=== PATIENT | female | born 1955 | race Caucasian/White ===

== ENCOUNTER 2019-05-20 07:38 | Inpatient (IN) ==
[2019-05-07 08:06] LABS: URINE SOURCE CLEAN CATCH
[2019-05-07 08:46] LABS: BASO# 0.05 X1000 (0.0-0.2); BASO% 0.9 % (0.0-0.8); EOS# 0.34 X1000 (0.0-0.7); EOS% 6.2 % (0.0-10.0); HEMATOCRIT 43.3 % (37.0-47.0); HEMOGLOBIN 14.6 g/dL (12.0-16.0); MCH 31.2 PG (27-31); MCHC 33.7 g/dL (33-37); MCV 92.5 FL (81-99); MONO# 0.51 X1000 (0.11-0.59); MONO% 9.3 % (1.7-9.3); MPV 12.1 FL (7.4-10.4); NEUT# 2.28 X1000 (1.4-6.5); NEUT% 41.6 % (42.2-75.2); PLT 280 X1000 (130-400); RBC 4.68 XMIL (4.2-5.4); RDW 13.2 % (11.5-14.5); WBC 5.48 X1000 (4.8-10.8)
[2019-05-07 08:47] LABS: BILIRUBIN URINE NEGATIVE (NEGATIVE); BLOOD URINE NEGATIVE (NEGATIVE); COLOR YELLOW; GLUCOSE URINE NEGATIVE (NEGATIVE); KETONE URINE NEGATIVE (NEGATIVE); LEUKOCYTES URINE MODERATE (NEGATIVE); NITRITE URINE NEGATIVE (NEGATIVE); PH URINE 6.5; PROTEIN URINE NEGATIVE (NEGATIVE); SP GRAVITY URINE 1.015; TURBIDITY URINE CLEAR (CLEAR); UROBILINOGEN URINE NORMAL (NORMAL)
[2019-05-07 08:48] LABS: UR EPITHELIAL CELLS <10 /HPF (<10); URINE BACTERIA NEGATIVE /HPF; URINE RBC <10 /HPF (<10)
[2019-05-07 08:59] LABS: INR 0.89; PROTIME 12.7 Seconds (11.0-16.0); PTT 28.6 Seconds (22.3-41.8)
[2019-05-07 09:13] LABS: AGAP 12; BUN 18 mg/dL (8-22); CALCIUM 9.6 mg/dL (8.8-10.2); CHLORIDE 101 mmol/L (98-107); COSMO 280; CREATININE 0.8 mg/dL (0.5-0.9); ESTIMATED GFR > 60; GLUCOSE 105 mg/dL (70-104); POTASSIUM 3.8 mmol/L (3.5-5.1); SODIUM 139 mmol/L (136-145); TCO2 26 mmol/L (25-35)
--- NOTE | 2019-05-07 11:22 | EKG Report ---
Test Performed on : 05/07/2019 07:32:00 AM Test Reason : PAT Blood Pressure : / mmHG Vent. Rate : 081 BPM Atrial Rate : 081 BPM P-R Int : 184 ms QRS Dur : 086 ms QT Int : 344 ms P-R-T Axes : 050 026 013 degrees QTc Int : 399 ms Normal sinus rhythm. Nonspecific T wave abnormality Inferior leads Borderline ECG When compared with ECG of 20-MAY-2014 09:10, No significant change was found Confirmed by Antonio Drummond MD ([id number]) on 05/07/2019 6:41:12 PM
[2019-05-20] MEDS ORDERED: PEPCID ONE (08:01)
[2019-05-20] MEDS ORDERED: COLACE ONE (08:01)
[2019-05-20] MEDS ORDERED: REGLAN ONE (08:01)
[2019-05-20] MEDS ORDERED: LYRICA ONE (08:02)
[2019-05-20] MEDS ORDERED: CELEBREX ONE (08:02)
[2019-05-20] MEDS ORDERED: LR 1,000 ML ONE (08:02)
[2019-05-20] MEDS ORDERED: KEFZOL 1 GM/D5W 1 GM/50 ML IVPB ONE (08:02)
[2019-05-20] MEDS ORDERED: DURAMORPH ONE (09:35)
[2019-05-20] MEDS ORDERED: TORADOL ONE (09:35)
[2019-05-20] MEDS ORDERED: SODIUM CHLORIDE 0.9% ONE (09:35)
[2019-05-20] MEDS ORDERED: VANCOMYCIN ONE (09:35)
[2019-05-20] MEDS ORDERED: MARCAINE 0.25% PF/EPI 1:200,000 ONE (09:35)
[2019-05-20] MEDS ORDERED: NEOSPORIN G.U. IRRIGANT ONE (09:36)
[2019-05-20] MEDS ORDERED: EXPAREL 1.3% ONE (09:36)
[2019-05-20] MEDS ORDERED: XYLOCAINE-MPF 2% ONE ×2 (09:48→09:49)
[2019-05-20] MEDS ORDERED: DIPRIVAN 1% ONE (09:49)
[2019-05-20] MEDS ORDERED: FENTANYL ONE (09:52)
[2019-05-20] MEDS: CYKLOKAPRON 1,000 MG/NS 2,000 MG/200 ML IVPB ONE ×2 (10:20→11:20)
[2019-05-20] MEDS ORDERED: ZOFRAN ONE (11:20)
[2019-05-20] MEDS ORDERED: OFIRMEV 1000 MG/ISOTONIC SOLN 1,000 MG/100 ML BOTTLE ONE (11:20)
[2019-05-20] MEDS ORDERED: DECADRON ONE ×2 (11:20→11:21)
[2019-05-20 12:09] LABS: BILIRUBIN URINE NEGATIVE (NEGATIVE); BLOOD URINE NEGATIVE (NEGATIVE); COLOR STRAW; GLUCOSE URINE NEGATIVE (NEGATIVE); KETONE URINE NEGATIVE (NEGATIVE); LEUKOCYTES URINE NEGATIVE (NEGATIVE); NITRITE URINE NEGATIVE (NEGATIVE); PROTEIN URINE NEGATIVE (NEGATIVE); SP GRAVITY URINE 1.007; TURBIDITY URINE CLEAR (CLEAR); URINE SOURCE CATH; UROBILINOGEN URINE NORMAL (NORMAL)
[2019-05-20 12:10] LABS: UR EPITHELIAL CELLS <10 /HPF (<10); URINE BACTERIA NEGATIVE /HPF; URINE RBC <10 /HPF (<10); URINE WBC <10 /HPF (<10)
[2019-05-20] MEDS ORDERED: NS 1,000 ML ONE (12:43)
--- NOTE | 2019-05-20 12:44 | Diag Imaging Result Doc PS360 ---
EXAM: KNEE 1-2 VIEWS-RIGHT INDICATION: tka on rt knee TECHNIQUE: 2 views COMPARISON: None. FINDINGS: There has been a recent right knee arthroplasty. The arthroplasty hardware is in the expected position. There is no evidence of periprosthetic fracture. Anterior skin sharri and a drainage catheter are in place. IMPRESSION: Satisfactory postoperative knee. Electronically signed by Ivan Hoskins 05/20/2019 12:42 PM
[2019-05-20] MEDS ORDERED: ZOFRAN ODT PO PRN (13:15)
[2019-05-20] MEDS ORDERED: ZOFRAN IV PRN (13:15)
[2019-05-20] MEDS ORDERED: OXY IR PO PRN (13:15)
[2019-05-20] MEDS ORDERED: DILAUDID IV PRN ×2 (13:15)
--- NOTE | 2019-05-20 14:18 | OPERATIVE NOTE ---
PROCEDURE DATE: 05/20/2019 PREOPERATIVE DIAGNOSIS: Degenerative joint disease, right knee. POSTOP DIAGNOSIS: Degenerative joint disease, right knee. PROCEDURE PERFORMED: Right total knee replacement. SURGEON: Dona Acevedo MD. FIELD APPLICATIONS SPECIALIST: TERRANCE Martin. Mr. Tobin was necessary for proper retraction and manipulation of the knee. ANESTHESIA: Spinal. COMPLICATION: None. PROCEDURE IN DETAIL: A 64-year-old female presents for right total knee replacement. Risks, benefits, and no guarantees were discussed and she is willing to proceed. She was taken to the operating room and satisfactory anesthesia was obtained. The right leg was prepped and draped in usual sterile fashion. A time-out was taken to confirm operative site, procedure, and patient. The leg was then wrapped with an Esmarch and tourniquet inflated 350 mmHg. A midline incision was made over the front of the right knee followed by a quad tendon sparing arthrotomy. The patella was everted and resurfaced with freehand technique and subluxed laterally. The knee was flexed. An intramedullary hole made in the distal femur and the distal femoral cutting block secured in 5 degrees of valgus. After the distal femoral resection the femur was sized to a size 5 DePuy Attune femoral implant. The 4-in-1 block was secured and anterior, posterior, and chamfer cuts sequentially made. Any remaining osteophytes were debrided. The knee was flexed and a PCL retractor placed behind the tibia to protect the PCL and neurovascular bundle. Tibial cutting block was secured with extramedullary alignment and the tibial resection made. Flexion-extension gaps were equal at 10 mm. Tibia was sized to a size 5 tibial tray. The patella sized to a 32 medialized dome patella. Trial reduction was performed with trial implants with good range of motion and stability. The drill holes were placed for the patella and the femoral component and the trial components removed. The bony surfaces were thoroughly irrigated with pulsatile lavage. Cement with a gram of vancomycin was utilized to cement a size 5 DePuy Attune rotating platform tibial base plate, a size 5 right cruciate-retaining femoral component and a 32 medialized dome patella. Excess cement was removed with a [place] elevator. While the cement cured, the joint capsule was injected with Exparel and a Hemovac drain placed. After curing the cement, a 10 mm size 5 thick rotating platform polyethylene bearing was inserted in the tibial tray and the knee reduced. Final range of motion was 0 to 130 degrees with midline patellar tracking. The arthrotomy was copiously irrigated and then closed over the drain with #1 Vicryl in the arthrotomy, 2-0 Vicryl in the subcutaneous and skin sharri on the skin edges. Sterile dressings completed the closure and the patient was recovered from anesthesia and transferred to the recovery room in stable condition. No intraoperative complications were noted. Instrument count, sponge count was correct at the time of closure. cc: Ivan Acevedo MD
[2019-05-20] MEDS: ULTRAM PO SCH ×2 (18:24→20:59)
[2019-05-20] MEDS: KEFZOL 1 GM/D5W 1 GM/50 ML IVPB IV SCH (18:24)
[2019-05-20] MEDS: OXY IR PO PRN (18:25)
[2019-05-20] MEDS: NS 1,000 ML IV SCH (18:29)
--- NOTE | 2019-05-20 18:52 | ORTHOPAEDICS PROGRESS NOTE ---
DATE: 05/20/2019 SUBJECTIVE: Ms. Malloy is seen status post total knee replacement. OBJECTIVE: She is afebrile with stable vital signs. Her bandage is clean and dry. She appears to be motor and sensory intact. ASSESSMENT/PLAN: We will plan on mobilizing her with a walker. We will consider discharge home when she is mobilizing well. cc: Ivan Acevedo MD
[2019-05-20] MEDS: PERIDEX MT SCH (20:57)
[2019-05-20] MEDS: COLACE PO SCH (20:58)
[2019-05-20] MEDS: TYLENOL PO SCH (20:58)
[2019-05-20] MEDS: CELEBREX PO SCH (20:58)
[2019-05-20] MEDS ORDERED: NORVASC PO SCH (21:00)
[2019-05-21] MEDS: KEFZOL 1 GM/D5W 1 GM/50 ML IVPB IV SCH (02:13)
[2019-05-21] MEDS: NS 1,000 ML IV SCH (02:14)
[2019-05-21] MEDS: TYLENOL PO SCH ×2 (04:09→08:14)
[2019-05-21] MEDS: ULTRAM PO SCH ×2 (04:09→08:18)
[2019-05-21 06:31] LABS: HEMATOCRIT 37.9 % (37.0-47.0); HEMOGLOBIN 12.6 g/dL (12.0-16.0)
[2019-05-21 06:50] LABS: AGAP 9; BUN 18 mg/dL (8-22); CALCIUM 8.6 mg/dL (8.8-10.2); CHLORIDE 106 mmol/L (98-107); COSMO 284; CREATININE 0.7 mg/dL (0.5-0.9); ESTIMATED GFR > 60; GLUCOSE 149 mg/dL (70-104); POTASSIUM 4.6 mmol/L (3.5-5.1); SODIUM 140 mmol/L (136-145); TCO2 25 mmol/L (25-35)
--- NOTE | 2019-05-21 07:54 | ORTHOPAEDICS PROGRESS NOTE ---
DATE: 05/21/2019 SUBJECTIVE DATA: Ms. Malloy seen on postop day 1 of her right total knee arthroplasty. She reports she is doing well at this time. She states that she has not had any nausea throughout the night. OBJECTIVE DATA: There is good sensation to the right lower extremity. The bandages are clean and dry. There is negative Homans sign. He has good capillary refill in the toes. There is about 30 mL of bloody drainage in her drain. Vital signs are stable. ASSESSMENT: Degenerative joint disease of the right knee with a right total knee arthroplasty. PLAN: Plan on sending Mr. Malloy home today with Xarelto for DVT prophylaxis as well as Bactrim for infection prevention. We will also give her prescription for Zofran for nausea and Percocet for pain. She is to follow up in office within 2 weeks for a recheck and to remove her sharri. We will check back on her then. We went ahead and set up home therapy at this time. Dictated by EVANGELINA Martin for Ivan Acevedo MD cc: EVANGELINA Martin MD
[2019-05-21] MEDS: OXY IR PO PRN (08:13)
[2019-05-21] MEDS: COLACE PO SCH (08:14)
[2019-05-21] MEDS: PERIDEX MT SCH (08:14)
[2019-05-21] MEDS: CELEBREX PO SCH (08:14)
[2019-05-21] MEDS ORDERED: CALTRATE 600 + D PO SCH (09:00)
[2019-05-21] MEDS ORDERED: COZAAR PO SCH (09:00)
[2019-05-21] MEDS ORDERED: ASPIRIN PO SCH (09:00)
[2019-05-21] MEDS ORDERED: PEPCID PO SCH (09:00)
[2019-05-21 11:38] VITALS: BP 107/57
[2019-05-22] MEDS ORDERED: VITAMIN D PO SCH (09:00)
== END 2019-05-21 12:46 | disposition home health service (06) | DRG 470 ==
LOC: 4N 07:38 → OR 07:38
PROVIDERS: ADMIT Orthopaedic Surgery Adult Reconstructive Orthopaedic Surgery; ATTEND Orthopaedic Surgery Adult Reconstructive Orthopaedic Surgery
CPT/HCPCS: 73560; 80048; 81001; 85014; 85018; 85025; 85610; 85730; 86850; 86900; 86901; 88305; 88311; 93005; 93010; 94761; 94799; 97110; 97162; 97530; A9270; C9290; J0131; J0690; J1100; J1885; J2274; J2275; J2405; J3010; J3370; J7030; J7120; Q9974; S0020